=== PATIENT | male | born 1990 | race American Indian/Alaskan Native ===

== ENCOUNTER 2016-06-10 09:03 | Emergency (ER) | payer SELFPAY ==
[2016-06-10 09:37] VITALS: BP 108/67
--- NOTE | 2016-06-10 10:47 | Cat Scan Report ---
Cranial CT without contrast. History: Headache and vomiting. Findings: The brain parenchyma is normal. There is no evidence of hemorrhage, mass, or infarct. No extra-axial collections are seen. The ventricles are normal in size and contour. The posterior fossa is normal. There is mucoperiosteal thickening in the ethmoid air cells bilaterally and in the superior aspect of the maxillary sinuses, incompletely imaged. Minimal mucoperiosteal thickening is seen in the sphenoid sinus and the left frontal sinus. Impression: 1. No intracranial abnormalities. 2. Pansinusitis with incomplete visualization of the ethmoid and maxillary sinuses.
[2016-06-10] MEDS ORDERED: DELTASONE PO ONE (10:58)
--- NOTE | 2016-06-10 11:00 | Emergency Department Report ---
ED Headache HPI - General Chief Complaint: Headache Stated Complaint: MIGRAINE THURMAN/VISION BLURRY Time Seen by Provider: 06/10/16 10:14 Source: patient, family Exam Limitations: no limitations - History of Present Illness Timing/Duration: 1 week, episodic Quality: moderate Head Injury Location: other (l side of head behind eye shooting pain w nausea, vomit x 1. no hx) Recent Head Trauma: no recent headache/trauma Associated Symptoms: nausea/vomiting. denies: nasal congestion, nasal drainage , numbness in legs/feet, rash Allergies/Adverse Reactions: Allergies Penicillins Adverse Reaction (Verified 06/10/16 09:32) hallucinations Home Medications: Ambulatory Orders Azithromycin [Zithromax Z-LOPEZ] 250 mg PO DAILY #6 tablet 06/10/16 Fluticasone [Flonase] 1 spray NS QDAY #1 bottle 06/10/16 predniSONE [Deltasone] 20 mg PO QDAY #5 tab 06/10/16 ED Review of Systems ROS: Stated complaint: MIGRAINE THURMAN/VISION BLURRY Other details as noted in HPI Comment: All other systems reviewed and negative Constitutional: no symptoms reported Eyes: as per HPI ENT: as per HPI Respiratory: no symptoms reported Cardiovascular: as per HPI Endocrine: no symptoms reported Gastrointestinal: as per HPI Genitourinary: as per HPI Musculoskeletal: as per HPI Skin: as per HPI, lesions Neurological: as per HPI, headache. denies: weakness, numbness, paresthesias, confusion, abnormal gait, vertigo Psychiatric: as per HPI Hematological/Lymphatic: as per HPI ED Past Medical Hx - Past Medical History Previous Medical History?: No Hx Congestive Heart Failure: No Hx Diabetes: No Hx Asthma: No Hx COPD: No - Surgical History Hx Appendectomy: Yes - Social History Smoking Status: Current Every Day Smoker Substance Use Type: Alcohol, Prescribed - Medications Home Medications: Home Medications Medication Instructions Recorded Confirmed Last Taken Type Azithromycin [Zithromax Z-LOPEZ] 250 mg PO DAILY #6 tablet 06/10/16 Unknown Rx Fluticasone [Flonase] 1 spray NS QDAY #1 bottle 06/10/16 Unknown Rx predniSONE [Deltasone] 20 mg PO QDAY #5 tab 06/10/16 Unknown Rx ED Physical Exam - General Limitations: No Limitations General appearance: alert, in no apparent distress - Head Head exam: Present: atraumatic - Eye Eye exam: Present: normal appearance, PERRL, EOMI - ENT ENT exam: Present: normal orophraynx, mucous membranes moist, other (tender over l frontal sinus only). Absent: mucous membranes dry - Neck Neck exam: Present: normal inspection. Absent: tenderness, meningismus - Respiratory Respiratory exam: Present: normal lung sounds bilaterally. Absent: respiratory distress, wheezes - Cardiovascular Cardiovascular Exam: Present: regular rate - GI/Abdominal GI/Abdominal exam: Present: soft - Rectal Rectal exam: Present: deferred - exam: Present: normal inspection - Extremities Exam Extremities exam: Present: normal inspection - Back Exam Back exam: Present: normal inspection - Neurological Exam Neurological exam: Present: alert, altered, oriented X3 - Psychiatric Psychiatric exam: Present: normal affect, normal mood - Skin Skin exam: Present: warm, dry, intact ED Course Vital Signs 06/10/16 09:34 Temperature 97.5 F L Pulse Rate 68 Respiratory 18 Rate Blood Pressure 108/67 O2 Sat by Pulse 100 Oximetry - Reevaluation(s) Reevaluation #1: 06/10/16 11:04 discussed +/_ ct w pt. he is very concerned about these new thurman neuro intact pain on palp frontal sinus only works in 32 d environment. vss. nad non toxic no focal neuro def no hx migraines ED Medical Decision Making - Radiology Data Radiology results: report reviewed Critical care attestation.: If time is entered above; I have spent that time in minutes in the direct care of this critically ill patient, excluding procedure time. ED Disposition Clinical Impression: Headache, Sinusitis Disposition: DISCHARGED TO HOME OR SELFCARE Is pt being admited?: No Does the pt Need Aspirin: No Condition: Good Instructions: Acute Headache (ED), Sinusitis (ED) Additional Instructions: rest fluids FLONASE OVER THE COUNTER PER BOX ENT if persists med as ordered here today hydrate well Referrals: PRIMARY CARE, [Primary Care Provider] - 3-5 Days NADER WALSH MD [Staff Physician] - 3-5 Days Time of Disposition: 11:06
== END 2016-06-10 11:16 | disposition home or self-care (01) ==
LOC: ED 09:03
DX: R51 Headache (principal); J32.9 Chronic sinusitis, unspecified; F17.200 Nicotine dependence, unspecified, uncomplicated
CPT/HCPCS: 70450; 99283; J7512

== ENCOUNTER 2018-08-25 17:58 | Emergency (ER) | payer OTHER ==
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
[2018-08-25 18:12] VITALS: BP 119/66
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
[2018-08-25] MEDS ORDERED: ULTRAM PO ONE (19:59)
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
== END 2018-08-25 21:03 | disposition home or self-care (01) ==
LOC: ED 17:58
DX: S16.1XXA Strain of muscle, fascia and tendon at neck level, initial encounter (principal); S39.012A Strain of muscle, fascia and tendon of lower back, initial encounter; Z90.49 Acquired absence of other specified parts of digestive tract; Z79.899 Other long term (current) drug therapy; Z88.0 Allergy status to penicillin; V89.2XXA Person injured in unspecified motor-vehicle accident, traffic, initial encounter; Y93.89 Activity, other specified; Y92.488 Other paved roadways as the place of occurrence of the external cause; Y99.8 Other external cause status
CPT/HCPCS: 72040; 72100; 99283